=== PATIENT | male | born 1930 | race Caucasian/White ===

== ENCOUNTER → 2018-10-14 | Outpatient (CLI) | payer MEDICARE, BC ==
[2018-10-14 13:19] LABS: Basophils % (A) 1 %; Eosinophils # (A) 0.2 k/uL (0-0.7); Eosinophils % (A) 4 %; HCT 49.1 % (39.0-53.0); HGB 16.4 gm/dL (13.0-17.5); Lymphocytes # (A) 1.6 k/uL (1.0-4.8); Lymphocytes % (A) 24 %; MCH 34.6 pg (25.0-35.0); MCHC 33.5 g/dL (31.0-37.0); MCV 103.3 fL (80.0-100.0); Macrocytosis Slight; Mean Platelet Volume 7.5; Monocytes # (A) 0.3 k/uL (0-1.0); Monocytes % (A) 5 %; Neutrophils # (A) 4.1 k/uL (1.3-7.7); Neutrophils % (A) 64 %; Platelet Count 190 k/uL (150-450); RBC 4.76 m/uL (4.30-5.90); RDW 14.5 % (11.5-15.5); WBC 6.5 k/uL (3.8-10.6)
[2018-10-14 14:23] LABS: Erythrocyte Sedimentation Rate 4 mm/hr (0-15)
[2018-10-14 20:56] LABS: C Reactive Protein <0.4 mg/dL (0.0-0.8); Uric Acid 4.9 mg/dL (3.7-8.7)
[2018-10-14 21:38] LABS: Rheumatoid Factor 7 IU/mL (0-15)
== END | disposition home or self-care (01) ==
LOC: LABWHC1 12:41
PROVIDERS: ATTEND Podiatrist Foot & Ankle Surgery
DX: M19.90 Unspecified osteoarthritis, unspecified site (principal); B99.9 Unspecified infectious disease
CPT/HCPCS: 36415; 84550; 85025; 85652; 86038; 86140; 86431

== ENCOUNTER → 2018-10-21 | Outpatient (CLI) | payer MEDICARE, BC ==
--- NOTE | 2018-10-21 14:28 | NM ---
EXAMINATION TYPE: NM bone 3 phase DATE OF EXAM: 10/21/2018 COMPARISON: NONE HISTORY: Right foot osteomyelitis Triple phase bone scintigraphy was performed following the injection of 24.8 mCi Tc 99m MDP. Immedia te images and 5.5 hours post injection images acquired. FINDINGS: There is increased radiotracer accumulation within the right foot compared to the left. This is more focal within the proximal tarsal region. Blood pool images were obtained. There is focal radiotracer accumulation within the mid right proxima l tarsal metatarsal junction region. Diffuse increased radiotracer accumulation is in the region of t he distal digits right foot. Static images are obtained mid right tarsometatarsal junction and first metatarsophalangeal joint spa ce joint have increased radiotracer accumulation. There is focal radiotracer accumulation in the [place] on of the first metatarsal phalangeal joint space Suspicious uptake within the left lower extremity i s not evident. Whole-body imaging is performed some focal uptake within the medial right knee may be degenerative in nature. Milder degenerative type uptake is present within the left knee. There is some focal radiotracer accumulation at the costal vertebral junctions of T12, T10, left T9, left T8 regions. These areas are likely related to degenerative changes. IMPRESSION: 1. Focal radiotracer accumulation in 3 phases of bone scan within the mid proximal right metatarsal r egion. Corresponding abnormality on plain films is not identified. Occult fracture and osteomyelitis could be considered within the differential. Correlate with location of the patient's pain. 2. 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
== END | disposition home or self-care (01) ==
LOC: RADNMMAIN 07:05
PROVIDERS: ATTEND Podiatrist Foot & Ankle Surgery
DX: M17.11 Unilateral primary osteoarthritis, right knee (principal); M47.814 Spondylosis without myelopathy or radiculopathy, thoracic region; R94.8 Abnormal results of function studies of other organs and systems
CPT/HCPCS: 78315; A9503